=== PATIENT | male | born 2000 | race Caucasian/White ===

== ENCOUNTER 2020-04-15 10:04 | Emergency (ER) | payer SELFPAY ==
[2020-04-15 10:08] VITALS: BP 158/107; PULSE 73; RESP 18; TEMP 36.7; O2SAT 97; BMI 22.9
--- NOTE | 2020-04-15 10:48 | XRR_ITS ---
PROCEDURE INFORMATION: Exam: XR Left Knee Exam date and time: 04/15/2020 11:32 AM Age: 19 years old Clinical indication: Injury or trauma; Injury history: Chainsaw; Initial encounter; Laceration; Patella or knee; Left; Foreign body involvement not specified; Injury date: 04/15/20; Additional info: Deep laceration to left knee TECHNIQUE: Imaging protocol: XR Left knee. Views: 3 views. COMPARISON: No relevant prior studies available. FINDINGS: Bones/joints: No fracture or effusion. Soft tissues: Infrapatellar and medial soft tissue swelling, soft tissue laceration. No radiodense or metallic foreign body. XR/XR knee LT 3V* [id number] IMPRESSION: No acute fracture.
--- NOTE | 2020-04-15 11:13 | ED_ITS ---
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 He does have an irregular laceration over his lower portion of his knee. No tendon or bone involvement. He states pain is a 6 out of 10. Patient is able ambulate. Associated symptoms: Denies chills, fever(s), nausea or vomiting Review of Systems Const: Denies: fever(s), chills, body aches or change in appetite Eyes: Denies: blurry vision or eye discomfort ENMT: Denies: throat pain or dental pain Card: Denies: chest pain Resp: Denies: dyspnea GI: Denies: abdominal pain, nausea, vomiting or diarrhea : Denies: dysuria Musc: Denies: neck pain or back pain Skin/Breast: Denies: rash Neuro: Denies: headache(s) Psych: Denies: depression Neto/Lymph: Denies: easy bruising All/Imm: Denies: urticaria Physical Exam Const: COMMON NORMALS: no acute distress, patient oriented x3 and healthy appearing HENMT: COMMON NORMALS: normocephalic and atraumatic HEAD & SCALP: normocephalic and atraumatic Eye: COMMON NORMALS: Equal, round and reactive pupils present and EOMs intact bilaterally PUPIL: Yes Equal, round and reactive pupils present Neck/C-Spine: COMMON NORMALS: full ROM and supple Chest: COMMONS NORMALS: normal inspection of the chest and normal palpation of entire chest wall Resp: COMMON NORMALS: normal respiratory effort, No retractions, No use of accessory muscles and clear to auscultation bilaterally AUSCULTATION: clear to auscultation bilaterally Cardio: COMMON NORMALS: regular rate, regular rhythm and No murmurs present (Cardio) RATE: regular rate RHYTHM: regular rhythm GI: COMMON NORMALS: Normal to inspection, nondistended, normoactive bowel s ounds present, Soft to palpation, non-tender and no masses PALPATION: Yes Soft to palpation Extremity: COMMON NORMALS: normal to inspection and full ROM NARRATIVE EXTREMITY EXAM: Large irregular laceration over anterior left knee. No tendon involvement. Patient has full range of motion. Neuro: COMMON NORMALS: patient oriented x3, moves all extremities and no focal motor deficits Psych: COMMON NORMALS: mental status grossly normal, Normal thought process present and cooperative THOUGHT PROCESS: Normal thought process present Skin: COMMON NORMALS: no rashes or lesions noted and no wounds GENERAL SKIN EXAM: no rashes or lesions noted Procedures Laceration Laceration 1: Site: lower extremity Side (If applicable): right Size (cm): 6 Description: irregular Depth: simple, single layer Local Anesthetic: lidocaine 1% Amount of anesthesia used (mL): 15 Pre-repair: wound explored, irrigated extensively and deep structures intact Skin layer closed with: nylon Size (cm): 3-0 Number of sutures: 7 Technique: simple, interrupted Course Vital Signs: Vital signs: Vital Signs Temperature 98.1 F 04/15/20 10:08 Pulse Rate 73 04/15/20 10:08 Respiratory Rate 18 04/15/20 11:16 Blood Pressure 158/107 04/15/20 10:08 Pulse Oximetry 97 04/15/20 10:08 MDM - Wound/Laceration MDM Narrative: Medical decision making narrative: Patient presents with knee laceration. Did repair the laceration with horizontal mattress. He had no joint involvement and x-ray is normal. We will place him on antibiotics. He is to return in 2 weeks to have sutures removed. Patient is return with any signs of infection. Wound was very thoroughly irrigated and cleaned. Imaging Data^: xr knee: Attestation: I personally reviewed and interpreted this imaging study as sheri chadwick: My impression: no acute abnormality Discharge Plan Discharge Patient Disposition: Home Clinical Impression: Laceration Condition: Stable Prescriptions: [place] 5-325 mg tablet 1 tab PO Q6H PRN (Reason: pain) Qty: 10 RF: 0 Keflex 500 mg capsule 500 mg PO Q6H 7 Days Qty: 28 RF: 0 Discharge Orders: Discharge Order (Routine); Ordered 04/15/20 Ordered By: Jamison Hicks Discharge Diet: Advance as tolerated Discharge Activity: Resume usual activity Patient Instructions: Laceration (ED) Activity Restrictions/Additional Instructions: return in 2 weeks for suture removal Stand Alone Forms: Work/School Release Coding Level of Care Code ED Ambulatory Care Coordinator for Chg Fwd Exam Comprehensive
[2020-04-15 11:16] VITALS: RESP 18
[2020-04-15] MEDS: morphine 4 mg/mL SDV 1 mL IVP (11:16)
[2020-04-15] MEDS: ondansetron 2 mg/ML SDV 2 mL 4 MG IVP (11:16)
[2020-04-15 11:48] VITALS: BP 126/94; PULSE 54; RESP 15; O2SAT 96
== END 2020-04-15 11:45 | disposition home or self-care (01) ==
PROVIDERS: Emergency Provider Emergency Medicine
DX: S81.012A Laceration without foreign body, left knee, initial encounter (principal); W29.3XXA Contact with powered garden and outdoor hand tools and machinery, initial encounter
CPT/HCPCS: 12002; 12345; 73562; 96374; 96375; 99282; 99283; J2270; J2405